=== PATIENT | male | born 1955 | race Caucasian/White ===

== ENCOUNTER 2017-04-18 16:10 | Emergency (ER) | payer OTHER ==
[2017-04-18 16:31] VITALS: BP 118/75
--- NOTE | 2017-04-18 16:43 | UC ---
Lower Extremity/Ankle HPI - HPI Summary HPI Summary: complaint of intermittent right foot swelling that started 4-[address] more than 1 hour in the care, sitting down all day makes it worse this episode has lasted for 4 days foot is slightly tender over the top of his foot swelling worse after biking today occasionally hurts with ambulation somtimes the front of his [place] gets swollen Dr Bird is PCP denies any trauma - History of Current Complaint Chief Complaint: UCLowerExtremity Stated Complaint: SWOLLEN FOOT Time Seen by Provider: 04/18/17 16:35 Hx Obtained From: Patient - Allergies/Home Medications Allergies/Adverse Reactions: Allergies Allergy/AdvReac Type Severity Reaction Status Date / Time Penicillins Allergy Unknown Verified 04/18/17 16:31 Reaction Details Home Medications: Home Medications Atorvastatin* [Lipitor 10 MG*] 10 mg PO DAILY 04/18/17 [History Confirmed ] Potassium Chlor TAB* [Klor Con ER TAB 10 MEQ*] 10 meq PO DAILY 04/18/17 [ History Confirmed 04/18/17] PMH/Surg Hx/FS Hx/Imm Hx Previously Healthy: Yes Endocrine History: Dyslipidemia Cardiovascular History: Cardiac Disease - Surgical History Surgical History: None - Family History Known Family History: Negative: Cardiac Disease, Hypertension, Diabetes - Social History Occupation: Employed Full-time Lives: With Family Alcohol Use: Daily Alcohol Amount: 1 glass wine or beer 6 days/week Substance Use Type: None Smoking Status (MU): Never Smoked Tobacco Review of Systems Constitutional: Negative Skin: Negative Eyes: Negative ENT: Negative Respiratory: Negative Cardiovascular: Negative Gastrointestinal: Negative Genitourinary: Negative Motor: Negative Neurovascular: Negative Musculoskeletal: Other: - right foot edema Neurological: Negative Psychological: Negative All Other Systems Reviewed And Are Negative: Yes Physical Exam Triage Information Reviewed: Yes Appearance: No Pain Distress, Well-Nourished Vital Signs: Initial Vital Signs Temp 98.4 F 04/18/17 16:26 Pulse 66 04/18/17 16:26 Resp 16 04/18/17 16:26 BP 118/75 04/18/17 16:26 Pulse Ox 100 04/18/17 16:26 Vital Signs Reviewed: Yes Eyes: Positive: Conjunctiva Clear ENT: Positive: Pharynx normal, TMs normal Neck: Positive: Supple, No Lymphadenopathy Respiratory: Positive: Lungs clear, Normal breath sounds, No respiratory distress Cardiovascular: Positive: RRR, No Murmur, Pulses Normal, Brisk Capillary Refill Abdomen Description: Positive: Nontender, Soft Bowel Sounds: Positive: Present Musculoskeletal: Positive: Other: - RLE- mild edema over the top of his foot- no erythema and normal temperature-non tender- many varicosisties throughout RLE and ankle Neurological: Positive: Alert Psychological Exam: Normal Skin Exam: Normal Lower Extremity Course/Dx - Course Course Of Treatment: mild edema in RLE most likely caused by poor peripheral circulation, varicose veins-no acute intervention needed at this time. will followup with PCP - Differential Dx/Diagnosis Differential Diagnosis/HQI/PQRI: Other - varicose veins, fluid rentention Provider Diagnoses: varicose veins , fluid retention right foot Discharge - Discharge Plan Condition: Stable Disposition: HOME Patient Education Materials: Varicose Veins (ED) Referrals: Jerardo Bird MD [Primary Care Provider] - Additional Instructions: The mild swelling in your right foot is most likely being caused by your circulation that is impeded by varicose veins in your foot and leg please make a followup appointment with your primary care provider for further evaluation and treatment
== END 2017-04-18 17:32 | disposition home or self-care (01) ==
LOC: UCEAST 16:10
DX: I83.91 Asymptomatic varicose veins of right lower extremity (principal); R60.9 Edema, unspecified; Z88.0 Allergy status to penicillin
CPT/HCPCS: 99211; G0463